=== PATIENT | male | born 1930 | race Caucasian/White ===

== ENCOUNTER 2018-01-26 22:45 | Emergency (ER) | payer OTHER, BC ==
[~2018-01-26] VITALS: Ht 167.6 cm; Wt 94.8 kg
[~2018-01-26 22:45] MED LIST: AVODART0.5 MG PO; FLOMAX0.4 MG PO; NOHOMEMEDICATIONS; ZPAK PO
== END 2018-01-27 00:28 | disposition home or self-care (01) ==
LOC: ER 22:45
DX: Z46.6 Encounter for fitting and adjustment of urinary device (principal); N40.0 Benign prostatic hyperplasia without lower urinary tract symptoms

== ENCOUNTER 2019-06-02 14:41 | Inpatient (IN) | payer OTHER, BC ==
[~2019-06-02] VITALS: Ht 170.2 cm; Wt 99.3 kg
[2019-06-02] MEDS ORDERED: SPIRONOLACTONE25 M1 PO (16:53)
[2019-06-02] MEDS ORDERED: TOPROL XL25 MG PO (16:56)
[2019-06-02] MEDS ORDERED: PAXIL10 MG PO (16:56)
--- NOTE | 2019-06-02 17:39 | NUR ---
WHITE MALE ADMITTED AT 1410 THIS AFTERNOON. HE IS ADMITTED WITH DEMENTIA. HIS SAYS HE IS MAKING VAILED THREATS TO HER AND SHE HAS BEEN BECOMING UNCOMFORTABLE. HE IS IRRITABLE, DEMANDING. HIS VITAL SIGNS ON ADMIT WERE B/P 120/68 P 38, TEMP 97.6 AND 100 % OXYGEN ON ROOM AIR. HE WAS COOPERATIVE WITH THE ADMISSION PROCESS. SIGNED THE ADMISSION PAPERS. MEDS PLACED IN COMPUTER AND READ TO DR. GOLDSTEIN AND DR. SHELLEY. DR. SHELLEY TO ENTER THEM INTO THE COPUTER. PT. DENIES HI/SI AND AVH AT THIS TIME. HE IS ALERT AND ORIENTED TIMES 4. HE STATES HE IS A VEGAN. HE IS CLEANLY DRESSED. WHEN HIS WAS PRESENT HE WAS ARGUMENTIVE WITH HER AND VERY DEMANDING.
[2019-06-02 20:16] VITALS: BP 151/70
--- NOTE | 2019-06-03 01:40 | NUR ---
NURSES NOTE - THIS NURSE ASSUMED CARE AT APPROXIMATELY 1900. HE APPEARED WITH A FLAT TENSE AFFECT UPON GREETING PATIENT. PATIENT APPEARS GROSSLY CONFUSED SURROUNDING REASON FOR BEING IN THE HOSPITAL. MULTIPLE REDIRECTIONS WERE ATTEMPTED TO GROUND PATIENT THAT WERE UNSUCCESSFUL. PATIENT WAS NOT COOPERATIVE WITH ASSESSMENT AND INTERVIEW. THIS NURSE GAVE PATIENT TIME ALONE AND RE ENTERED ROOM WITH PATIENTS MEDICATION AND ATTEMPT TO REASSESS PATIENT TO WHICH PATIENT STATED 'GO AWAY, I SAID GO AWAY.' THIS NURSE DID PATIENT ASKED. HE DID NOT APPEAR TO BE IN MEDICAL DISTRESS NOR ANY SUICIDAL GESTURES OR ITEMS IN ROOM WERE APPARENT FOR POSSIBLE ATTEMPT. NURSING WILL MAINTAIN PRECAUTIONS TO ENSURE SAFETY.
--- NOTE | 2019-06-03 06:20 | NUR ---
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
--- NOTE | 2019-06-03 12:23 | NUR ---
PSYCHOSOCIAL ASSESSMENT Diagnosis: UNSPECIFIED PSYCHOSIS Admit Date: 06/02/19 Psychiatrist: DAPHNEY Symptoms associated with current admission: Anxiety/panic Violence/aggression Activity level change Presenting problems: Pt has being feeling down, and did not want to participate in regular activities. pt is fearful, anxious. Pt was having homicidal ideation. Pt mention that he would hurt hius but does not want too. Precipitating Factors: Non-compliance psychothx No clear precipitant Medical condition Comments: Pt has being diagnosed with Parkinson. History of High Risk Behavors: Other Suicide Risk Factors: D A-Signs of alcohol/substance abuse w/ suicide ideation B-Recent suicidal thoughts or attempts C-Recent thoughts or attempts of harming someone else D-Altered mental status due to psychiatric/chem dep etiology E-The behavior exists - add comment PSYCHIATRIC HISTORY Age of onset: 89 Prior hospitalizations: 1-2 times hospitalized Hospital names and dates, if available: [facility] 2018 Most Recent Outpatient HX: Denies prior OP services Additional information: Legal Status: DPOA Guardian/Conservatorship type: DPOAs Contact name: Carol Ann Quijano Contact phone: [phone] Other: Name: Phone: Other legal issues: (Arrests/convictions Current Status) None P.O. Name and Phone #: FAMILY HISTORY Place of : [facility] Raised in: [facility] # Siblings & order: Pt has to two sibilings, eldest Describe relationships within family of origin: Pt is very close with his sibilings. Any psychiatric or substance abuse problems within family of origin: N Has patient been sexually or physically abused, neglected or been taken advantage of financially? N Has the abuse been reported? N Other pertinent family information: Marital history/significant relationships: Domestic violence: N Children ages & who is caring for them: Pt has two adult children Is child welfare involved? N Drug history: None Alcohol Use: Frequency: Quantity: Have you ever felt you ought to Cut down on drinking? Have people Annoyed you by criticizing your drinking? Have you ever felt bad or Guilty about your drinking? Have you ever had a drink first thing in the morning to steady your nerves/get rid of a hangover(Eye ec teacher) CAGE TOTAL 0 If CAGE score is 3 or more, notify provider for withdrawal orders! AXIS SCREENING TOOL Preble I Mood Disorders: Depression Preble II Personality/Mental Retardation: Preble III Medical Impairment: Alzheimer's HTN UTI Preble IV Problem(s) with: Health care services Other psych/environ prob Preble V: 40-Major impairment Additional Preble comments: PERSONAL BACKGROUND Relevant cultural issues (ethnicity, values, beliefs, spiritual): Spiritual Spiritism: Prostestant Importance of scientology to patient: High What hobbies/interests does the patient have? Read Computers Music (Classical) Sexual orientation (relevant impact to current treatment): Heterosexual : Where did you serve: Branch of service: [employer] Rank: Unknown Discharge status: Honorable Are you a combat ? N Occupational/Work: Do you work? N Do you want to work? How many hours do you work/week? 0 How many jobs have you had in the past 5 years? 0 Do you need assistance finding a job? N Does the patient need assistance in job training? N Source of income: SSI Other Does patient have a Payee? Y Payee name: Carol Ann Quijano Approximate monthly income: 1500 Does patient have adequate funds for next 30 days? Y Education background: Post-graduate school Highest grade completed: 12th grade Other Educational/training programs: Functional deficits: Explain functional deficits: Current living situation: House/apartment Address/phone where pt. is living: Pt lives at home with his Does the patient plan to continue there after DC? Yes Patient lives with: Spouse Will family/significant other be involved in treatment? Other community support services utilized: Pt will probably need a memory care setting Support System Available (family/friend) Name: Carol Ann Quijano Relationship: Name: Phone: Relationship: Name: Phone: Relationship: Patient strengths: Family support Motivated Insight Community support Patient's assets: Good self care Positive support system Positive marriage Patient's weaknesses: Chronic hx mental illness Health problems Additional weaknesses: Pt will need assistance with care. Patient's perception of current forensic social worker/case management needs: Pt stated that CM is someone who assist with care PRELIMINARY DISCHARGE PLAN Discharge plan/Community resource contacts: Pt will need a memory care setting Discharge needs: Pt will need assistance with care. Problems anticipated on discharge: Compliance w/ med regimen Comments: (factors affecting DC plan/pt. response/interventions) SW will setup a family meeting with .
[2019-06-03 13:46] VITALS: BP 151/70
--- NOTE | 2019-06-03 15:41 | NUR ---
ASSUMED CARE OF PT AT 0700. PT WAS CALM AND NOT AGITATED THUS FAR TODAY. PT STATED " MY CAME TO SEE ME TODAY" I ASKED IF HE HAD A GOOD VISIT HE STATED YES. PT HAS A FLAT AFFECT. TOOK ALL MORNING MEDS, SHIFT ASSESSMENT COMPLETE. WILL CONT POC.
--- NOTE | 2019-06-03 16:57 | NUR ---
HUNG schedule a family with the family on June 10, 2019. SW spoke with pt son and informed him that pt would like for him to attend the meeting. SW provided the pt information of the meeting. SW will follow-up with pt.
--- NOTE | 2019-06-04 03:09 | NUR ---
NURSES NOTE - ALEXANDER IS ALERT AND ORIENTED X3. DURING INITIAL GREETING PATIENT APPEARED WITH A CONSTRICTED TENSE AFFECT. WHO REPEATEDLY SAID 'NO' WHEN THIS RN HAS NOT ASKED A QUESTION. THIS NURSE ASKED TO PERFORM QUICK HEAD TO TOE AND PATIENT STATED 'NO, DONT TOUCH ME, I DONT LIKE YOUR HANDS. I DONT WANT MEDICINE OR ANYTHING FROM YOU.' PATIENT REFUSED ASSESSMENT, NO S/S OF DISTRESS, ABLE TO MAKE COMPLETE SENTENCES. PATIENT WENT TO HIS ROOM IN BED WITH EYES CLOSED ON AND OFF FOR ENTIRETY OF SHIFT. WILL CONTINUE TO MONITOR.
--- NOTE | 2019-06-04 06:07 | NUR ---
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
--- NOTE | 2019-06-04 09:18 | H ---
[facility] [place] [address] HISTORY AND PHYSICAL Name: ALEXANDER LUCAS Room #: 524A-A ADM IN M.R.#: [id number] Admission: 06/02/19 ������������������ Attend Phys: Manuel Arnett DO Discharge: ������������������ Date of : 32 Report #: [id number] THIS REPORT FOR: //name// CC: Manuel Arnett [facility] DATE OF SERVICE: 06/02/2019 ATTENDING PHYSICIAN: Manuel Arnett DO. CAREER DEVELOPMENT FACILITATOR: Angel Quiroz MD REASON FOR ADMISSION: Homicidal ideation, concern for dementia. SOURCES OF INFORMATION: Interview with the patient, medical records from [facility], interview with his , name Carol Ann, also goes by Lin. HPI: This is an 89-year-old male who presented to the Emergency Room from [facility], noted to have persistent thoughts of killing his , stated he tries not to have these thoughts and then he had them, he has been experiencing them for the last 1-2 months. Denies depression, denied suicidal intent. He has had thoughts of suicide, but states clearly "I would never harm myself." The patient reports no psychiatric history. Denies anxiety is an issue for him, though he does feel anxious at times. The patient reports he does not know exactly how homicidal thoughts started, feels upset that it is happening. The patient is agreeable to psychiatric admission. He stated that the last time he was here, he was hoping for, but that did not happen. According to his , she has never felt threatened, but in the last week, felt more unease. Additional information from the , the patient made a statement that if he did not in the back seat, he felt he would try and take control of the steering wheel and have an accident. Additionally, on interview this morning, the patient states that he has had thoughts that had been bothering him, thoughts about political figures such as Alyssia. Denies access to weapons. Denies intent to harm people including political figures. The patient is a poor historian. I completed the 15-question geriatric depression scale, the patient scored 0 surprisingly, I believe he understood all the questions. [facility] mental status examination was performed; he scored a 15/30. Deficits were widespread, delayed recall, clock drawing, verbal fluency, visual spatial things were preserved, executive function was impaired, few memory relatively preserved. LABORATORY DATA: H and H 13.2 and 39.6, platelet count 180, white blood cell [address] [address] HISTORY AND PHYSICAL Name: ALEXANDER LUCAS Room #: 524A-A ADM IN .R.#: [id number] Admission: 06/02/19 ������������������ Attend Phys: Manuel Arnett DO Discharge: ������������������ Date of : 32 Report #: [id number] count 4.3. Sodium 135, potassium 4.4, chloride 106, bicarbonate 23, anion gap 6, BUN 24, creatinine 1.41, EGFR non- 48, glucose 111, albumin 3.6, calcium 9.2, total bilirubin 0.9, total protein 6.6, AST 10, ALT 5, alkaline phosphatase 55. UDS is negative. Urine culture is negative on 05/27/2019. Salicylate less than 2.5. Urinalysis showed 3+ leukocyte esterase, negative nitrites, positive urine ascorbic acid, white blood cell counts were packed, bacteria was moderate. Additional information, primary care physician, Dr. Jorge Pickens; script was given for levofloxacin p.o. q.12 hours; he will take for 10 days. 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 HOME MEDICATIONS: Tylenol, vitamin C, aspirin, cholecalciferol, Coenzyme-Q, cyanocobalamin, donepezil, glucosamine, hyoscyamine, Ocuvite, Lutein, metoprolol XL 25 mg extended release daily, polyethylene glycol daily, spironolactone 25 mg daily. He was on Bactrim, but now switched to levofloxacin and multivitamins. FAMILY HISTORY: Heart disease in his father. SOCIAL HISTORY: for 34 years, one biological child. 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 IMAGING: No recent imaging done here. His states MRI and CT was done at the [facility], we will request records. Also additional medical history, he has had a tremor for 3 years, there is a concern of Parkinson's disease, not officially diagnosed. PHYSICAL EXAMINATION: VITAL SIGNS: Today as follows, temperature not done, pulse 76, respirations 18, BP 151/70. MUSCULOSKELETAL: Did have a slowed gait, normal station. MENTAL STATUS EXAMINATION: This is a well-developed, fairly nourished male, appearing stated age. Attention limited. Concentration limited. Speech slowed. Thought process linear and limited. Thought content, relative poverty of thought. Some psychomotor retardation. No psychomotor agitation. Denied overt auditory hallucinations, possibly thought insertion. Denied visual hallucinations, denied tactile, denied olfactory, denied gustatory. Memory [facility] [address] [place] [address] HISTORY AND PHYSICAL Name: ALEXANDER LUCAS Room #: 524A-A ADM IN M.R.#: [id number] Admission: 06/02/19 ������������������ Attend Phys: Manuel Arnett DO Discharge: ������������������ Date of : 32 Report #: [id number] formally tested with [facility] and was grossly impaired. Insight impaired. Judgment impaired. Fund of knowledge well below his premorbid average, which is a master's degree in mathematics. FORMULATION: An 89-year-old male being admitted for homicidal ideation as well as intermittent suicidal ideation as well as cognitive impairment. 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 PLAN: Evaluate, stabilize and obtain collateral. Regarding his current medications, we have tamsulosin 0.4 mg p.o. daily, spironolactone 25 mg p.o. daily, metoprolol XL 25 mg p.o. daily with pulse and blood pressure parameters, dutasteride 0.5 mg p.o. daily, levofloxacin 750 mg daily for I guess 7-10 days, there is no stop date and regular PRNs. We will obtain records from [facility]. We will see if the patient perks up in his cognitive function. If not, we will have to do the SABRINA, possibly neuropsych testing. At this point, it is unclear if the patient can return home or will need placement. Time spent on interview, review of records evaluation, coordination of care of this patient is at least 60 minutes. STRENGTHS: Insured, he is and has family support. WEAKNESSES: Advancing age, neurodegenerative pictures. ��������������������������������������������� <ELECTRONICALLY SIGNED> ���������������������������������������� By: Manuel Arnett DO ��������������������������������������������� 06/04/19 0918 1317 1430 Manuel Arnett, /nt
--- NOTE | 2019-06-04 16:32 | NUR ---
0700: Report rec from noc shift, care assumed. 0800: Ambulatory independently to Dr, feeds self, apptite good, takes meds whole w/o difficulty. Pt secldes self from others, gives short answers to questions. Pleasant and cooperative with staff and other pts.
[2019-06-04 19:24] VITALS: BP 104/68
[2019-06-04 19:28] VITALS: BP 106/56
--- NOTE | 2019-06-04 23:15 | NUR ---
PT IN ROOM TALKING WITH PEER UPON ARRIVAL TO SHIFT. PT CAME TO DAY ROOM FOR HS SNACK, COMPLIANT WITH MEDS. PT HAS EYE CONTACT BUT BLUNTED AFFECT. ON ANTIBIOTIC FOR UTI. GAIT STEADY AMBULATORY.
--- NOTE | 2019-06-05 09:42 | NUR ---
0700: Report rec from noc shift, care assumed. 0900: Ambulatory independently in halls and to DR, gait steady. Sits in DR away from others, affect flat, minimal communication with interaction. Feeds self, appetite good, consumed 100% of meal. Takes meds whole w/o difficulty, denies pain or discomfort @ this time. Cooperative with staff and pleasant with room mate. Declines 0900 therapy group, in bed resting.
[2019-06-05 19:36] VITALS: BP 98/48
--- NOTE | 2019-06-05 21:37 | NUR ---
PT LAYING IN BED READINIG THE BIBLE. WHEN PT WAS ASKEDIF HE WANTED A SNACK HE WAS VERBALLY IRRITABLE AND SAID NO. PT THEN PROCEEDED TO READ A BIBLE PASSAGE ABOUT CURSING AT A YELLING LEVEL. PT WAS COMPLIANT WITH HIS HS MEDS. PT DECLINED HS RORY, PCT STATED PT HAD SHOWER IN THE EARLY AM ON 11/05.
[2019-06-06 07:00] VITALS: BP 102/71
[2019-06-06 12:21] VITALS: BP 98/48
--- NOTE | 2019-06-06 17:13 | NUR ---
Sw spoke with pts' and she confirmed that she is having a family meeting on sunday at 11 am. She is aware that pt might need placement but really wants to try to keep him at home as long as possible
--- NOTE | 2019-06-06 18:03 | NUR ---
ASSUMED CARE AT 0700 THIS MORNING. PT. HAS BEEN ON THE UNIT FOR GROUPS (ALTHOUGH HE SAT ON THE PERIPHERY), TOOK MEDS WITHOUT PROBLEMS. HE ATE HIS MEALS ON THE UNIT. HE HAS NOT STATED ANY HI STATEMENTS TODAY. HAVE NOTED ANY SI OR AVH TODAY. EATING WELL.
[2019-06-06 19:55] VITALS: BP 140/83
--- NOTE | 2019-06-06 22:51 | NUR ---
Care assumed at 1900: Patient alert and oriented to person and place. Confusion noted. Patient resting in bed at start of shift. Patient declined HS snack. Patient blunted affect. Easily irritable. Patient has 2+ pitting edema to bilateral lower extremities. Patient encouraged to elevate lower extremities when laying in bed. Patient attempting to close his door. Patient re-directed to leave door cracked open when in room. Patient irritable when bed alarm sounds. Patient given alternative call light and educated to use. Patient educated on purpose of bed alarm and call light and fall prevention. Patient stated "you're full of bologna!" Patient took his medication without difficulty. Patient denies SI/HI/AH/VH. No s/s of delusional or paranoia behaviors. No s/s of agression this shift.
--- NOTE | 2019-06-07 09:28 | NUR ---
[id number]: Report rec from noc shift, care assumed. Awake, oriented to name, forgetful and confusion noted to situation and place. Ambulatory independently to DR, gait slow/steady. Secludes self in DR, minimal feedback communication from pt, feeds self, appetite good, consumed 100% of a.m. meal, takes meds whole w/o difficulty, denies pain, affect flat. Attending 0900 therapy group, minimal participation noted.
[2019-06-07 17:23] VITALS: BP 101/54
[2019-06-07 20:24] VITALS: BP 101/69
--- NOTE | 2019-06-08 02:16 | NUR ---
Care assumed of patient at 1900: Patient alert and oriented x4 with occasional confusion noted. Patient can be demanding and irritable at times. Patient has been more pleasant and cooperative this shift. Patient sat in the day room with other peers for snack and evening activity. Patient doesn't communicate with others much and is more of a passive participant. Patient denies any SI/HI/AH/VH. No delusional or paranoia behaviors observed. Patient took medication whole without difficulty. Patient is on abx tx for the diagnosis of UTI. Denies any pain or burning upon urination. Currently incontinent of bladder. Patient encouraged to use the bathroom and angie care offered. Patient declines for assist in angie care and states he can do it independently. Patient was able to go to bed without any difficulty and has been resting quietly.
[2019-06-08 05:35] LABS: HEMATOCRIT 37.6 % (42.0-52.0); HEMOGLOBIN 12.7 gm/dL (14.0-18.0); MCH 32.1 pg (26.0-34.0); MCHC 33.9 g/dL (28.0-37.0); MCV 94.8 fL (80.0-100.0); PLATELET COUNT 144 thou/uL (150-400); RBC 3.97 mil/uL (4.50-6.00); RDW 15.5 % (10.5-14.5); WBC 4.8 thou/uL (4.0-11.0)
[2019-06-08 06:03] LABS: ALBUMIN 2.7 g/dL (3.4-5.0); CALCIUM 8.9 mg/dL (8.5-10.1); CREATININE 1.5 mg/dL (0.7-1.3); POTASSIUM 4.1 mmol/L (3.5-5.1); TOTAL BILIRUBIN 0.9 mg/dL (<0.1-1.0); TOTAL PROTEIN 6.3 g/dL (6.4-8.2)
[2019-06-08 06:22] LABS: ABSOLUTE NEUTROPHILS 2.8 thou/uL (1.4-8.2)
[2019-06-08 09:38] VITALS: BP 94/57
--- NOTE | 2019-06-08 15:21 | NUR ---
0700: Report rec from noc shift, care assumed. 0800: Ambulatory independently in thorne and to DR, gait slow/steady. Affect flat, pleasant and cooperative with staff. Feeds self with set up assist, appetite good, consumed 100% of a.m. meal, takes meds whole w/o difficulty. 0900: Attending therapy group with 100% participation.
[2019-06-08 19:52] VITALS: BP 106/64
--- NOTE | 2019-06-09 01:48 | NUR ---
PT AMBULATING TO BATHROOM INDEPENDENTLY AND IS TOLERATING FAIR. DENIES PAIN. RESTING COMFORTABLY. NO NEEDS VOICED. WILL CONTINUE TO PROVIDE FREQUENT OBSERVATION.
[2019-06-09 07:00] VITALS: BP 91/54
[2019-06-09 11:00] VITALS: BP 91/54
--- NOTE | 2019-06-09 11:58 | NUR ---
Date of Admission: 06/02/19 Date of Activity Therapy Assessment: 06/05/19 Activity Goal: Increase engagement/reality orientation Initial Goal: 2 Group activities/day Weekly progress towards goal: On track Group participation level: Moderate Behaviors observed: Patient participates in most groups, though ocassionally denies, i.e. when he prefers to watch television (though not provided during group times) or walk the unit. Patient engages well with other participants and requires minimal reorientation to present situation. Plan: No change towards goal
--- NOTE | 2019-06-09 15:32 | NUR ---
PATIENT UP WALKING IN HALLS FREQUENTLY. SHUFFLING GAIT NOTED. SHAVED HIMSELF THIS AM WITH SOME ASSISTANCE FROM NURSE. EATING ALL OF MEALS IN DINING ROOM. SPEECH IS HARD TO UNDERSTAND AND DISORGANIZED. ALERT AND ORIENTED X 3. TOOK PILLS WITH WATER. IMPULSIVE. DENIED PAIN.
[2019-06-09 19:18] VITALS: BP 124/66
--- NOTE | 2019-06-09 19:51 | NUR ---
ASSUMED CARE OF THE PT AT 191 PM. ALERT ET ORIENTED X 3. MAKES NEEDS KNOWN. HEART RATE REGULAR. LUNGS CLEAR BILATERLLY, RESP., EVNE, AND UNLABORED. +BS HEARD IN ALL 4 QUADRANTS. ABD SOFT ET NONTENDOR. +PP BILATERALLY. DENIES ANXIETY AND DEPRESSION. DENIES SI/HI, A/V HALLUNCIATIONS. REMAINS ON 12 MINUTE CHECKS FOR HIS SAFETY.
--- NOTE | 2019-06-10 12:42 | NUR ---
HUNG and Dr. Arnett met with pt family to discuss his diagnosis, and medication regimine. Dr. Arnett mention pt is exhibiting signs of Lewy Body Dementia, and will need assistance with care that consist 11/06. Pt Carol Ann mention that she would like to bring her home with home health care. Carol Ann mention if the illiness progressed then she would move to implmenting LTC placement in . Dr. Arnett mention pt will be ready for d/c on , June 12, 2019. HUNG will provide referrals for HH. HUNG will follow-up with the family to see what agencies will provide care.
[2019-06-10 13:53] VITALS: BP 121/66
--- NOTE | 2019-06-10 15:24 | NUR ---
PT PARTICIPATED IN AM GROUP, TOLERATING MEALS AND TAKING MEDICATION WITHOUT ISSUE. PATIENT COOPERATIVE AND CALM, AFFECT FLAT. PATIENT TOILETS SELF, DENIES PAIN, WALKS AROUND FREQUENTLY. WILL CONTINUE TO MONITOR FOR SAFETY.
[2019-06-10 19:11] VITALS: BP 138/82
--- NOTE | 2019-06-10 22:49 | NUR ---
Care assumed of patient at 1900: Patient laying in bed at start of shift. Patient calm, pleasant and cooperative. Patient alert and oriented x4. Patient states that he is going home tomorrow which he is excited about. Unknown of accuracy of statement. Patient took medication whole without difficulty. Denies pain or discomfort. Denies SI/HI/AH/VH. No delusional or paranoia statements observed. Patient came to dining room for HS snack and ate 100%. Patient sat in the back of room and isolate self from others. Flat affect observed. Patient is up reading in day room at this time. Reports that he is not tired and would like to read for a bit.
--- NOTE | 2019-06-11 14:26 | NUR ---
TOWARDS POC NO BEHAVIORAL ISSUES AT THIS MOMENT, PT CALM, COOPERATIVE. VSS. WILL CONTINUE TO MONITOR.
[2019-06-11 14:56] VITALS: BP 123/80
--- NOTE | 2019-06-11 17:07 | NUR ---
SW spoke with the pt about d/c home with HH. Pt stated that he would like to go home, and be with his .
[2019-06-11 19:24] VITALS: BP 119/71
--- NOTE | 2019-06-11 21:24 | NUR ---
PATIENT APPEARS TO BECOMING INCREASINGLY AGITATED OR DELUSIONAL RELATED TO ANOTHER PATIENT HE IS REFERRING TO HIS . HE CONTINUES TO PUSH HER WC AND MAINTAINS THAT HE WANTS CONTROL OF HER IT IS HIS . DR. SHELLEY NOTIFIED WITH ORDERS FOR GEODON 10MG X1 NOW.
--- NOTE | 2019-06-12 01:24 | NUR ---
ASSUMED CARE OF PATIENT, AT THE BEGINNING OF THE SHIFT PATIENT WAS PLEASANT WITH NURSING STAFF, TAKING MEDICATION PRESCRIBED AND INTERACTING WITH OTHERS MINIMALLY. HE WAS ABLE TO ANSWER ALL QUESTIONS FROM THIS NURSE, ALERT AND ORIENTED X3. LATE RINTO THE EVENING PT BX DECLINED. SEE PREVIOUS NOTES. CURRENTLY PATIENT IN BED WITH NO S/S OF DISTRESS. RR EVEN AND UNLABORED. WILL CONTINUE TO MONITOR.
[2019-06-12 06:22] LABS: HEMATOCRIT 38.8 % (42.0-52.0); MCH 31.9 pg (26.0-34.0); MCHC 33.4 g/dL (28.0-37.0); MCV 95.4 fL (80.0-100.0); PLATELET COUNT 155 thou/uL (150-400); RBC 4.07 mil/uL (4.50-6.00); RDW 15.3 % (10.5-14.5); WBC 3.7 thou/uL (4.0-11.0)
[2019-06-12 06:31] LABS: CALCIUM 9.2 mg/dL (8.5-10.1); CREATININE 1.4 mg/dL (0.7-1.3); POTASSIUM 4.2 mmol/L (3.5-5.1)
[2019-06-12 07:54] LABS: ABSOLUTE NEUTROPHILS 1.9 thou/uL (1.4-8.2)
[2019-06-12 07:55] LABS: ANISOCYTOSIS 1+
[2019-06-12 08:03] VITALS: BP 131/84
[2019-06-12 16:54] VITALS: BP 118/80
--- NOTE | 2019-06-12 16:56 | NUR ---
Patient Name: ALEXANDER LUCAS Admission Date: 06/02/19 DISCHARGE PLAN: Pt will be d/c home with . Care Assessment: Pt was assessed by Dr. 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 Level II Assessment: None Transportation: Pt will be transported by his . Special Instructions/Notes: Pt will need continuance care with a psychiatrist. DISCHARGE TO FACILITY: Facility: Phone: Fax: Address: Contact Name: Phone: PCP: Psychiatrist: [facility] on June 19, 2019 at 10:00am.
[2019-06-12] MEDS ORDERED: HALOPERIDOL 1 MG1 MG PO (17:11)
[2019-06-12] MEDS ORDERED: COLACE100 MG PO (17:12)
[2019-06-12 17:30] VITALS: BP 118/80
--- NOTE | 2019-06-12 18:58 | NUR ---
DISCHARGE INSTRUCTIONS INCLUDING MEDICATIONS PRESCRIBED AT TIME OF DC-FOLLOW UP APPOINTMENTS AND REFERRALS-PRESCRIPTIONS PROVIDED REVIEWED WITH BROOKS-DC INVENTORY OF BELONGINGS REVIWED AND STATES ALL BELONGINGS ACCOUNTED FOR. DENIES QUESTIONS OR CONCERNS RE DC INSTRUCTIONS. AT TIME OF DC ALEXANDER DENIES COMPLAINTS OF PAIN/DISCOMFORT. DENIES SI/SH/HI. ORIENTED TO NAME AND PLACE-NOT TO DATE. GAIT STEADY WITHOUT ASSISTIVE DEVICES AT TIME OF DC.
--- NOTE | 2019-06-16 07:51 | D ---
[facility] [place] [address] DISCHARGE SUMMARY Name: ALEXANDER LUCAS Room #: 524A-A [facility] [place] IN M.R.#: [id number] Admission: 06/02/19 ������������������ Attend Phys: Manuel Arnett DO Discharge: 06/12/19 ������������������ Date of : 32 Report #: [id number] THIS REPORT FOR: //name// CC: Manuel Arnett [facility] DATE OF SERVICE: 06/12/2019 ATTENDING: Manuel Arnett D.O. TREE TAPPING LABORER AT THE TIME OF DISCHARGE: Brittni King MD. 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 MEDICAL COMORBIDITIES: As follows; protein-calorie malnutrition, on Ensure b.i.d. Acute on chronic renal failure, p.o. fluids encouraged. Hypertension, on beta-paulino. Thrombocytopenia, monitoring CBC. UTI, Levaquin course completed. BPH, continuing home meds. DISCHARGE PLAN: He will be discharged to home with his . The patient will need 24-hour supervision and assistance at home. The patient will need to continue care with psychiatrist. He has an appointment at [facility] on 06/19/2019 at 10:00 a.m. for psychiatric and general medical followup to be obtained at that clinic. ACTIVITY: The patient's activity level as tolerated. The patient is to begin. LABORATORY DATA ON THIS ADMISSION: CBC most recently done on 06/12/2019, H and H 13.0 and 38.8, white count 3.7, platelet count 155. Chemistries from 06/12/2019, sodium 140, potassium 4.2, chloride 104, bicarbonate 29, BUN 27, creatinine 1.4, estimated GFR 48, glucose 106, calcium 9.2, magnesium 2.0. IMAGING: On this admission was none. REASON FOR ADMISSION: As follows, reported homicidal ideation and concern for dementia. He was sent from [facility] due to persistent thoughts of killing his . HOSPITAL COURSE: The patient was admitted to Geriatric Psychiatry Unit. Summary of events and interventions occurring during hospitalization, the patient did not exhibit any homicidal ideation or homicidal or suicidal gestures towards his or during number of family visitations. The patient did meet criteria for major neurocognitive disorder. I believe his SLUMS score was around 16 or so out of 30. We had a few nights of temporary aggressiveness likely due to sundowning, which was treated with Geodon IM. However, mostly oral haloperidol [facility] [address] [place] [address] DISCHARGE SUMMARY Name: ALEXANDER LUCAS Room #: 524A-A [facility] [place] [facility]#: [id number] Admission: 06/02/19 ������������������ Attend Phys: Manuel Arnett, Discharge: 06/12/19 ������������������ Date of : 32 Report #: [id number] at a dose of 4 mg at 1400 and 2000 was useful in mitigating these thought disturbances and behaviors. PHYSICAL EXAMINATION: VITAL SIGNS: On day of discharge, temperature 36.6, pulse 59, respirations 18, BP 118/80. MUSCULOSKELETAL: Normal gait and station. This is a well-developed, disheveled, obese male, BMI of 34.3. Attention limited. Concentration limited. Speech is normal in rate, volume and tone. Thought process is linear and goal oriented. Thought content focused on discharge. No psychomotor agitation. No psychomotor retardation. Mood and affect congruent and constricted. Denied SI or HI. Some helplessness. Denied hopelessness. Denied homicidal intent or plan. Memory noted to be impaired. Insight fair. Judgment fair to limited. Fund of knowledge still likely above average. Prognosis is guarded. DISCHARGE MEDICATIONS: Include Haldol 4 mg p.o. at 1400 and 2000, 30-day script was given, docusate 100 mg p.o. b.i.d. for bowel motility. CONTINUE HOME MEDICATIONS: Tamsulosin 0.4 mg p.o. daily for BPH, dutasteride 0.5 mg p.o. daily for BPH, metoprolol succinate 125 mg p.o. daily, Toprol-XL for hypertension. Paroxetine and spironolactone were stopped in this admission. ��������������������������������������������� <ELECTRONICALLY SIGNED> ���������������������������������������� By: Manuel Arnett DO ��������������������������������������������� 06/16/19 075 20 56 Manuel Arnett DO /nt
== END 2019-06-12 18:45 | disposition home or self-care (01) | DRG 57 ==
LOC: SBH 14:41
PROVIDERS: Internal Medicine Geriatric Medicine; Nurse Practitioner; ADMIT Psychiatry & Neurology Psychiatry
DX: G30.9 Alzheimer's disease, unspecified (principal); N39.0 Urinary tract infection, site not specified; E46 Unspecified protein-calorie malnutrition; F01.51 Vascular dementia, unspecified severity, with behavioral disturbance; F02.81 Dementia in other diseases classified elsewhere, unspecified severity, with behavioral disturbance; F32.9 Major depressive disorder, single episode, unspecified; N40.0 Benign prostatic hyperplasia without lower urinary tract symptoms; I12.9 Hypertensive chronic kidney disease with stage 1 through stage 4 chronic kidney disease, or unspecified chronic kidney disease; D69.6 Thrombocytopenia, unspecified; N18.3 Chronic kidney disease, stage 3 (moderate); Z82.49 Family history of ischemic heart disease and other diseases of the circulatory system; Z79.899 Other long term (current) drug therapy; Z68.34 Body mass index [BMI] 34.0-34.9, adult
CPT/HCPCS: 10880

== ENCOUNTER 2019-06-18 21:14 | Inpatient (IN) | payer OTHER, BC ==
[~2019-06-18] VITALS: Ht 170.2 cm; Wt 106.1 kg
[~2019-06-18 21:14] MED LIST changes: +COLACE100 MG PO; +HALOPERIDOL 1 MG1 MG PO; +PAXIL10 MG PO; +SPIRONOLACTONE25 M1 PO; +TOPROL XL25 MG PO
[2019-06-18 21:21] VITALS: BP 149/71
[2019-06-18 21:57] LABS: HEMATOCRIT 39.3 % (42.0-52.0); HEMOGLOBIN 13.1 gm/dL (14.0-18.0); MCH 32.8 pg (26.0-34.0); MCHC 33.2 g/dL (28.0-37.0); MCV 98.6 fL (80.0-100.0); PLATELET COUNT 161 thou/uL (150-400); RBC 3.98 mil/uL (4.50-6.00); RDW 15.3 % (10.5-14.5); WBC 4.3 thou/uL (4.0-11.0)
[2019-06-18 22:09] LABS: ANION GAP 7 mmol/L (7-16); BUN 26 mg/dL (7-18); CALCIUM 9.4 mg/dL (8.5-10.1); CHLORIDE 104 mmol/L (98-107); CO2 28 mmol/L (21-32); CREATININE 1.2 mg/dL (0.7-1.3); GLUCOSE 105 mg/dL (74-106); POTASSIUM 4.5 mmol/L (3.5-5.1); SODIUM 139 mmol/L (136-145)
[2019-06-18 22:12] LABS: SALICYLATE < 2.8 mg/dL (2.8-20.0)
[2019-06-18 22:19] LABS: SGOT 13 U/L (15-37); SGPT 16 U/L (30-65); TOTAL BILIRUBIN 0.6 mg/dL (<0.1-1.0); TOTAL PROTEIN 6.9 g/dL (6.4-8.2); TROPONIN-I <0.06 ng/mL (<0.06)
[2019-06-18 22:53] LABS: ABSOLUTE NEUTROPHILS 2.7 thou/uL (1.4-8.2)
[2019-06-18 22:55] LABS: PLATELET ESTIMATE NORMAL
--- NOTE | 2019-06-19 00:49 | NUR ---
REPORT TO INPATIENT NURSE, YADI
[2019-06-19 00:50] VITALS: BP 124/68
[2019-06-19 01:48] VITALS: BP 139/71
--- NOTE | 2019-06-19 02:16 | NUR ---
ADMIT: ADMITTED FROM ED FROM HOME. KC WAS ASKED BY THE POLICE TO BRING PT IN. PT HAD BEEN IMPULSIVELY CALLING THE POLICE AT NIGHT TO HIS HOME. TODAY THE PT STATED HIS WAS TRYING TO POSION HIM WITH SAMMARINESE FOOD. PT HAS BEEN NON COMPLIANT WITH MEDS. PT HAD BEEN A PT ON [facility] 2 WEEKS AGO. DEMENTIA WITH AGIATION, PROSTATE SURGERY 3 YRS AGO, HERNIA, HTN, LARGE BRUISE ON BACK FROM FALL AT HOME. GAIT AT THIS TIME UNSTEADY AND SLOUCHED TORI RODRÍGUEZ IN ED. PREVIOUS GAIT STEADY INDEPENDENT, CONTINENT B&B. WAS IN ED BUT DID NOT ACCOMPANY PT ON UNIT. PT HAS GLASSES. HOSPITALIST NOTIFIED. DR GATE CLERK NOTIFIED AND NEW ORDERS OBTAINED. PT ARRIVED TO UNIT AND REQUESTED TO GO TO BED. ALARM ON.
[2019-06-19 06:49] LABS: URINE BILIRUBIN NEGATIVE (Negative); URINE BLOOD TRACE (Negative); URINE CLARITY CLEAR; URINE COLOR YELLOW; URINE GLUCOSE-RANDOM* NEGATIVE (Negative); URINE KETONES NEGATIVE (Negative); URINE PROTEIN (DIPSTICK) NEGATIVE (Negative); URINE UROBILINOGEN 0.2 E.U./dl (0.2-1.0)
[2019-06-19 06:56] LABS: AMP/METHAMP Negative (Negative); BARBITURATES Negative (Negative); BENZODIAZEPINES Negative (Negative); COCAINE Negative (Negative); METHADONE Negative (Negative); OPIATES Negative (Negative); PCP Negative (Negative)
[2019-06-19 07:02] LABS: URINE LEUKOCYTES-REFLEX 3+ (Negative); URINE NITRITE-REFLEX POSITIVE (Negative)
[2019-06-19 07:19] LABS: CASTS None Seen /LPF (None Seen); SQUAMOUS 0-3 Few /LPF (0-3)
[2019-06-19 07:21] LABS: BACTERIA-REFLEX 1-9 Few /HPF (None Seen); CRYSTALS None Seen /LPF (None Seen); URINE RBC 0-2 Rare /HPF (0-2); WBC CLUMPS Few (None Seen)
[2019-06-19 07:23] VITALS: BP 121/71
[2019-06-19 08:00] VITALS: BP 121/71
--- NOTE | 2019-06-19 08:21 | EKG ---
[place] [address] [facility] [place] [address] ELECTROCARDIOGRAM REPORT Name: ALEXANDER LUCAS Ondina Room #: 528B-B ADM IN M.R.#: [id number] Admission: 06/19/19 Attend Phys: Maneul Arnett DO Discharge: Date of : 32 Report #: [id number] THIS REPORT FOR: //name// [facility] ED Test Date: 2019-06-18 Test Time: 22:32:49 Pat Name: ALEXANDER LUCAS Department: Room: 528B Gender: M Trimmer Operator: VAIBHAV : [id number] Requested By: Adria Rosas Order Number: [id number] MD: Garfield Gutierrez Measurements Intervals [place] Rate: 54 P: 46 NE: 62 QRS: -32 QRSD: 95 T: -1 QT: 450 QTc: 427 Interpretive Statements Sinus rhythm Short NE interval Left axis deviation Abnormal R-wave progression, early transition Borderline T abnormalities, inferior leads Compared to ECG 12/24/2003 21:46:09 early R-wave progression is now present Electronically Signed On 06-19-2019 8:21:07 CDT by Garfield Gutierrez [email or web address] <ELECTRONICALLY SIGNED> By: Garfield Gutierrez MD, [facility] 06/19/19 0821 31 31 Garfield Gutierrez MD, [facility] /EPI
--- NOTE | 2019-06-19 10:00 | NUR ---
PT UP FROM SLEEPING THIS AM. PT TOOK MEDS WITHOUT ANY ISSUES. HELD METOPROLOL DUE TO BP. PT NEEDS ENCOURAGED TO USE WALKER. PT GAIT IS SHUFFLED. PT COOROPERATIVE WITH CARE AT THIS TIME. 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
--- NOTE | 2019-06-19 11:13 | NUR ---
HUNG spoke with pt Carol Ann concerning a family meeting. SW schedule family meeting on June 25, 2019 at 11:00am. SW mention that pt will need a NF placement. SW will follow-up with pt family.
--- NOTE | 2019-06-19 11:15 | NUR ---
HUNG sent a referral to [facility] to enroll into [place] Medicaid.
--- NOTE | 2019-06-19 12:32 | NUR ---
PT ON HIS WAY TO HIS ROOM FOR GETTING A ONE TIME SHOT OF ROCEPHIN. PT NOT WALKING TO HIS ROOM AND STATED HIS ROOM WAS DOWN THE SRINIVASAN. HAD TO REDIRECT PT TO HIS ROOM. PT RECIEVED SHOT TO RT HIP. PT THEN WENT TO GROUP. PT VERY SLOW TO AMBULATE AND NEEDED HELP WITH STANDING.
--- NOTE | 2019-06-19 14:42 | NUR ---
PT SITTING IN DINING ROOM SLEEPING IN CHAIR. PT UNABLE TO WAKE UP FOR HALDOL.
[2019-06-19 20:27] VITALS: BP 190/87
[2019-06-20 02:38] VITALS: BP 190/87
--- NOTE | 2019-06-20 02:56 | NUR ---
PT RESTLESS, AND SHUFFLING AROUND THE UNIT. INCONTINENT OF URINE, AND NEEDED TO CHG BED CLOTHING. COOPERATIVE WITH ASSESSMENT AND TOOK HS MEDS W/O PROBLEM. SLEPT WELL THROUGH THE NIGHT.
[2019-06-20 08:00] VITALS: BP 121/74
--- NOTE | 2019-06-20 16:05 | NUR ---
ASSUMED CARE AT 0700 THIS MORNING. HE HAS BEEN ON THE UNIT MUCH OF THE MORNING. HE SAT QUIETLY BY HIMSELF. HE WOULD INTERACT WITH STAFF WHEN THEY APPROACHED HIM, BUT HE MADE NO SPONTANIOUS CONVERSATIONS OF HIS OWN. HE WAS COOPERATIVE WITH TAKING HIS MEDICATIONS, ATTENDING GROUPS AND EATING IN THE DINING ROOM. HE DENIES SI/HI AND AVH THIS SHIFT. HE HAS BEEN RESTING IN HIS BED THIS AFTERNOON.
[2019-06-20 19:41] VITALS: BP 109/56
--- NOTE | 2019-06-20 20:14 | NUR ---
RECEIVED REPORT FROM OFFGOING DAY NURSE, ASSUMED CARE @ 19:15. HRRR, LUNGS CTA ALL WILSON, ABD NORMOACTIVE. IN BED, EYES CLOSED RESPIRATIONS EVEN AND UNLABORED, OPENS EYES AND RESPONDS APPROPRIATELY A&OX 3-4. BED IN LOW POSITION, ALARM SET. WILL CONTINUE TO MONITOR Q 12 MINUTES FOR PATIENT SAFETY.
--- NOTE | 2019-06-20 22:08 | H ---
[facility] [place] [address] HISTORY AND PHYSICAL Name: ALEXANDER LUCAS Room #: 528B-B ADM IN M.R.#: [id number] Admission: 06/19/19 Attend Phys: Manuel Arnett DO Discharge: Date of : 32 Report #: [id number] THIS REPORT FOR: //name// CC: Manuel Arnett [facility] DATE OF SERVICE: 06/19/2019 PSYCHIATRIC EVALUATION IDENTIFYING INFORMATION: This is an 89-year-old male, , was admitted on a voluntary basis. SOURCES OF INFORMATION: Interview of the patient, review of the chart and the medical records of the last hospitalization, discussion of the case with the treatment team. CHIEF COMPLAINT AND HISTORY OF PRESENT ILLNESS: This is an 89-year-old male who was recently hospitalized at [facility] on the Geriatric floor and was discharged on Haldol 4 mg twice a day. Since his discharge, review of the records indicate nonadherence with medication. He presented to the Emergency Department as a self-referral through ambulance. He has been worried and paranoid about his trying to poison him. He reported this is a new thing. According to reports, he has been becoming more confused at night and has been calling police multiple times. As mentioned before, hallucinations and paranoia is a new development. The patient himself is a poor historian. He does report anxiety, though he denies depression. Reality testing is impaired. In the past, he has had homicidal thoughts, which are not present at this hospitalization. LABORATORY FINDINGS: Sodium 139, potassium 4.5, chloride 104, bicarbonate 28, BUN 26, creatinine 1.2. Blood glucose 105, AST 13, ALT 16, alkaline phosphatase 67. WBC count 4.3, hemoglobin 3.98, hematocrit 39, and platelet count 161. VITAL SIGNS: Blood pressure 124/68, pulse 51, respirations 18 per minute, temperature 36.8. PAST MEDICAL HISTORY: The patient has significant history of hypertension, benign prostatic hypertrophy, chronic renal failure stage 3, bladder outlet obstruction, hydronephrosis, umbilical hernia without obstruction, scoliosis, history of paroxysmal atrial tachycardia, monoclonal gammopathy of unknown significance, anemia. PAST SURGICAL HISTORY: Prostate operation about 3 years ago. HOME MEDICATIONS: Famotidine 20 mg at bedtime, cephalexin 1000 mg twice a day, [address] [address] HISTORY AND PHYSICAL Name: ALEXANDER LUCAS Ondina Room #: 528B-B ADM IN .R.#: [id number] Admission: 06/19/19 Attend Phys: Manuel Arnett DO Discharge: Date of : 32 Report #: [id number] polyethylene glycol as needed, Zofran as needed, lidocaine, tamsulosin 0.4 mg daily, metoprolol 25 mg daily, dutasteride 0.5 mg every day, Colace 100 mg twice a day, Haldol 4 mg twice a day, acetaminophen as needed. FAMILY HISTORY: Father has cardiac issues. SOCIAL HISTORY: This is an 89-year-old male who has been for 34 years. The patient has one biological child. MENTAL STATUS EXAMINATION: This is an 89-year-old male who appears to be of his stated age. He is comfortably lying in his bed, does not appear to be in any acute distress or pain. Appears to be of his age. Appears nourished. Attention is limited. Concentration is poor. Speech is slow, linear, but limited. There is latency in his responses with low tone voice. Thought content shows paranoia. He does not exhibit psychomotor agitation. He denies auditory hallucinations, though he does not appear to be responding to internal stimuli. Denies visual hallucination. Denies olfactory or gustatory hallucination. Memory tested with slumps is grossly impaired. Insight and judgment is poor. Fund of knowledge is limited. FORMULATION: An 89-year-old male with history of major neurocognitive disorder, presented with paranoia and ideas of persecution with what appears to be sundowning phenomena. DIAGNOSIS: Major neurocognitive disorder with psychosis. ASSETS: Verbal, supportive family. LIABILITIES: Medical health issues, chronicity of illness. RECOMMENDATIONS: 1. We will monitor sleep, appetite, mood, behavior and psychosis. 2. Provide structure, support and reality orientation. 3. Stabilize, get collateral information. 4. Continue home medication. 5. Internal Medicine to address urinary tract infection and elevated BUN at 26. Time spent to interview, review of records, coordination of care at least 60 minutes. <ELECTRONICALLY SIGNED> By: Jose Lackey MD 06/20/19 [id number] Jose Lackey MD /nt
[2019-06-20 22:42] VITALS: BP 109/56
--- NOTE | 2019-06-21 05:03 | NUR ---
SLEPT WELL, AWOKE ONCE IN THE NOC TO TOILET. HAD A BM WELL VOIDING URINE. WILL CONTINUE TO MONITOR Q 12 MINUTE ROUNDING. BED IN LOW POSITION, BED ALARM SET.
[2019-06-21 06:10] VITALS: BP 109/56
--- NOTE | 2019-06-21 11:24 | NUR ---
ASSUMED PATIENT CARE AT 0700. PATIENT UP IN DR AT THAT TIME, SITTING AT TABLE. FLAT AFFECT, CALM MOOD. NO BEHAVIORS AT THIS TIME. COMPLIANT WITH MEDICATIONS. CONTINUE TO MONITOR.
--- NOTE | 2019-06-21 11:42 | NUR ---
PATIENT HAS VISITOR, ARRIVED AT 11:00 A.M. PATIENT SITTING WITH VISITOR AT THIS TIME IN DINING ROOM, AT TABLE.
[2019-06-21 19:23] VITALS: BP 135/87
--- NOTE | 2019-06-21 20:18 | NUR ---
RECEIVED REPORT FROM OFFGOING DAY NURSE, ASSUMED CARE 06/21/19 @ 1900. IN DAYROOM, COOPERATED WITH ASSESSMENT HRRR, LUNGS CTA BUT DIMINISHED, ABD NORMOACTIVE X 4 Q. REQUESTED TO MAKE A PHONE CALL TO , DIALED PHONE HIMSELF AND SPOKE ON THE PHONE FOR 5 MINUTES. WILL CONTINUE TO MONITOR Q 12 FOR PATIENT SAFETY.
--- NOTE | 2019-06-22 00:21 | NUR ---
TOOK HS MEDS WHOLE WITH WATER. EDEMA NOTED TO BILAT LOWER EXTREMITIES. IN BED, BUT FREQUENTLY AWAKE WHEN ROUNDING. DENIES PAIN OR NEEDS. BED IN LOW POSITION, BED ALARM SET, WILL CONTINUE TO MONITOR Q 12 FOR PATIENT SAFETY.
[2019-06-22 00:27] VITALS: BP 135/87
--- NOTE | 2019-06-22 06:44 | NUR ---
6.4 HOURS OF SLEEP.
[2019-06-22 08:43] VITALS: BP 144/69
--- NOTE | 2019-06-22 11:11 | NUR ---
ASSUMED PATIENT CARE AT 0700. PATIENT UP IN DR AT THAT TIME. BELIEVES THAT HE IS BEING DISCHARGED TODAY. NURSE REDIRECTED HIM AT THAT TIME THAT HE WAS NOT. PATIENT STATED DURING ACTIVITY GROUP THAT HE WAS DISCHARGED. LATER, ABOUT 1000 A.M., PATIENT WAS AT EXIT DOOR, STATING THAT HE NEEDED TO LEAVE BECAUSE HE WAS DISCHARGED. NURSE REDIRECTED ONCE AGAIN, TOOK PATIENT AWAY FROM DOOR, BACK TO D.R. CONTINUE TO MONITOR.
--- NOTE | 2019-06-22 11:57 | NUR ---
HUNG spoke with Pt daughter, Emily. Emily stated that her family had a meeting and are in agreement with the treatment plan. emily stated she would not be able to make it to the meeting on but want to let HUNG know all are in agreement. Emily stated her mother will be looking at nursing facilities this upcoming week.
[2019-06-22 20:19] VITALS: BP 146/74
--- NOTE | 2019-06-22 21:59 | NUR ---
ASSUMED CARE OF THE PT AT 191 PM. ALERT ET ORIENTED X 2, FORGETFUL AT TIMES. HEART RATE REGULAR, LUNGS CLEAR BILATERALLY, RESP., EVEN AND UNLABORED. +BS HEARD IN ALL 4 QUADRANTS. ABD SOFT ET NONTENDOR. HE CAN WALK AROUND THE UNIT, WITH A SLOW STEADY GAIT. DENIES ANXIETY, DEPRESSION, A/V HALLUNICATIONS, SI, HI. DENIES RACING THOUGHTS AND NIGHTMARES. HAS AN UNKEMPT APPEARANCE. MAKES NEEDS KNOWN. REMAINS ON 12 MINUTE CHECKS FOR HIS SAFETY.
[2019-06-23 07:34] VITALS: BP 114/79
--- NOTE | 2019-06-23 09:45 | NUR ---
0725: Report rec from [facility] shift, care assumed. [id number]: Ambulatory assisted with walker, gait steady/slow, oriented to name and place occasionally. To DR ramey, feeds self, takes meds whole w/o difficulty. Cooperative with staff, mood is flat/quiet.Denies concerns or pain at this time.
[2019-06-23 19:08] VITALS: BP 121/77
--- NOTE | 2019-06-24 00:41 | NUR ---
ASSUMED CARE OF THE PT AT 191 PM. ALERT ET ORIENTED X 2. MAKES NEEDS KNOWN. WALKS WITH A STEADY GAIT. HEART RATE REGULAR. LUNGS CLEAR BILATERALLY, RESP., EVEN, AND UNLABORED. +BS HEARD IN ALL 4 QUADRANTS. DENIES ANXIETY, DEPRESSION, A/V HALLUNICATONS. REMAINS ON 12 MINUTE CHECKS FOR HIS SAFETY.
--- NOTE | 2019-06-24 06:12 | NUR ---
THE PT SLEPT 6.8 HOURS OF SLEEP LAST NIGHT.
--- NOTE | 2019-06-24 10:10 | NUR ---
0715: Report rec from [facility] shift, care assumed. [id number]: Ambulatory independently with walker to BR, in halls and to DR, gait steady. Alert, oriented to name and occasionally place, feeds self, appetite good, takes meds whole w/o difficulty. Denies pain or discomfort at this time. Attended 0900 therapy group, 25% participation noted, sleep while sitting at table in common area.
[2019-06-24 10:59] VITALS: BP 118/70
[2019-06-24 19:41] VITALS: BP 143/75
[2019-06-24 22:48] VITALS: BP 143/75
--- NOTE | 2019-06-25 00:10 | NUR ---
PATIENT UP AND AMBULATING BEFORE BED. HE DID COME OUT TO NURSES STATION TO STATE THAT HE HAD SOME RADIOACTIVE DEVICE THAT HE WANTED US TO HOLD IN AN ENVELOPE FOR HIM. IT WAS A TORN UP PAPER TOWEL AND I PUT IT IN AN ENVELOPE AND SHOWED HIM IT WAS BEING KEPT SAFE. HE CALMED DOWN AND MOVED ON DOWN THE SRINIVASAN WITH HIS WALKER. PATIENT HAS BEEN PLEASANT TOOK HIS HS MEDS WITHOUT A PROBLEM AND IS SLEEPING SOUNDLY. HE DOES GET CONFUSED WHERE HIS ROOM IS AND DID COME TO LET ME KNOW A WOMAN WAS IN HIS BED. HE WAS IN THE WRONG ROOM. REDIRECTED HIM EASILY BACK TO HIS. DENIES PAIN. RESTING COMFORTABLY.
--- NOTE | 2019-06-25 05:27 | NUR ---
PATIENT GOT UP TO GO TO BATHROOM AROUND 0300 WHEN RAILWAY TRACK PLANT OPERATOR AND MYSELF WAS IN THE ROOM TO DO ROOM CHECKS. PATIENT'S YELLOW NONSLIP SOCKS WERE ON AND WALKER USED. NO BM. AT 0400 PATIENT TOOK A SHOWER. THIS NURSE HELPED HIM OUT AND DRIED HIM. PATIENT BACK TO BED AND STILL SLEEPING.
[2019-06-25 07:30] VITALS: BP 117/80
--- NOTE | 2019-06-25 16:52 | NUR ---
HUNG met with pt Carol Ann concerning AL, and RCF. SW mention that will need a memory care unit. SW recommended [facility], and provided contact information for the NF. SW mention that she will send a referral on tomorrow, June 26, 2019.
[2019-06-25 19:46] VITALS: BP 112/60
--- NOTE | 2019-06-26 02:35 | NUR ---
ASSUMED CARE OF PT AT 1900HRS. PT IS ALERT AND AMBULATED THE HALLWAY. PT USES HIS WALKER AND WEARS YELLOW SOCKS. PT IS PLESANTLY CONFUSED AND WAS ASKING STAFF ABOUT THEIR "TRANSFORMERS". PT ALSO BELIEVES THAT THE ROOM NUMBERS HAVE BEEN SWITCHED AROUND. PT WAS CALM AND EASY TO REORIENT. VSS AND NO S/S OF ACUTE DISTRESS. WILL CONTINUE TO MONITOR.
[2019-06-26 08:52] VITALS: BP 100/60
--- NOTE | 2019-06-26 12:01 | NUR ---
Date of Admission: 06/19/19 Date of Activity Therapy Assessment: 06/22/19 Activity Goal: Increase reality orientation and socialization Initial Goal: 1 Group activity/day Weekly progress towards goal: On track Group participation level: Moderate Behaviors observed: Patient appears drowsy and is unable to stay awake during most groups, though he participates moderately when awake. Patient requires direct engagement to contribute to groups and interacts little socially. Plan: No change towards goal
[2019-06-26 20:10] VITALS: BP 153/91
--- NOTE | 2019-06-26 22:50 | NUR ---
ASSUMED CARE OF THE PT AT 1915PM. ALERT ET ORIENTED X 2. MAKES NEEDS KNOWN. WALKS WITH A SLIGHTLY UNSTEADY GAIT. HEART RATE REGULAR. LUNGS CLEAR BILATERALLY, RESP., EVEN, AND UNLABORED. +BS HEARD IN ALL 4 QUADRANTS. THE PT IS OBESE. +PP BILATERALLY, THE PT HAS SWOLLEN FEET AND ANKLES. DENIES ANXIETY AND DEPRESSION. REMAINS ON 12 MINUTE CHECKS FOR HIS SAFETY.
--- NOTE | 2019-06-27 04:33 | NUR ---
THE PT APPEARS TO BE RESTING QUIETLY IN BED. RESP., EVEN, AND UNLABORED. REMAINS ON 12 MINUTE CHECK FOR HIS SAFETY.
--- NOTE | 2019-06-27 05:39 | NUR ---
the pt slept 8.0 hours last night.
--- NOTE | 2019-06-27 11:07 | NUR ---
Nutrition: Pt seen for early LOS on [facility] unit. Met with pt in day area. He is a vegan (pescetarian technically). Admit for dementia, behavioral disturbance, psychosis. Eating exceptional. Great appetite, with 98% meal average per the last 18 recorded meals (06/20-06/26). Last documented BM 06/22. He is on scheduled docusate sodium BID since 06/19; has also prn Miralax. Pt reports no po intake concerns. Has a few kitchen complaints (i.e. "wants more greens," "broccoli is undercooked), but otherwise no additional needs. Called to add salad to lunch. Made sure pt eating enough protein from other sources. For protein he eats fish, beans, nuts/nut butter. Typically drinks almond milk; RD informed him of low protein < 1 g/svg, suggest soy. Low nutrition risk given high PO.
[2019-06-27 12:07] VITALS: BP 108/60
--- NOTE | 2019-06-27 14:47 | NUR ---
PATIENT HAS BEEN UP AND OUT ON THE UNIT, AMBULATE WITH ASSIST OF ROLLER WALKER, GAIT IS SLIGHTLY UNSTEADY. PATIENT IS EATING MEALS AND DRINKING FLUID FAIRLY WELL. PATIENT TOOL ALL MORNING MEDICATION WHOLE WITHOUT DIFFICULTY. PATIENT IS ALERT, AND ORIENTED X 2-3, ABLE TO VOICE NEED, HAS PERIODS OF FORGETFULNESS AND CONFUSION. PATIENT DENIES SUICIDAL AND HOMOCIDAL IDEATION. HE DENIES DEPRESSION AND ANXIETY. NO AGGRESSION OR AGITAION NOTED AT THIS TIME. PATIENT IS PARTICIPATING IN GROUP THERAPY, NO SIGN OF ACUTE DISTRESS NOTED, WILL MONITOR FOR SAFETY.
--- NOTE | 2019-06-27 16:32 | NUR ---
SW sent a referral to [facility], and [facility]. HUNG will follow-up with referral on Sunday, June 30, 2019.
[2019-06-27 21:26] VITALS: BP 138/70
[2019-06-28 07:00] VITALS: BP 116/52
[2019-06-28 09:37] VITALS: BP 116/52
[2019-06-28 21:19] VITALS: BP 133/81
[2019-06-29 00:40] VITALS: BP 133/81
--- NOTE | 2019-06-29 06:11 | NUR ---
PATIENT QUIET TONIGHT. SAT UP IN DINING ROOM TO HAVE HS SNACK OF PUDDING AND WENT BACK TO BED. HELPED PATIENT TO BATHROOM AND BACK A COUPLE OF TIMES DURING NIGHT. BLE EDEMA CHRONIC AT 2+. YELLOW NON SLIP SOCKS ON AND WALKER TO TRANSFER. NO C/O PAIN. SLEPT WELL THRU NIGHT.
[2019-06-29 09:35] VITALS: BP 139/81
--- NOTE | 2019-06-29 10:19 | NUR ---
ASSUMED PATIENT CARE AT 0700. PATIENT UP IN D.R. FOR BREAKFAST. COMPLIANT WITH A.M. MEDICATIONS, WHOLE WITH WATER. FLAT AFFECT, CALM MOOD, NO BEHAVIORS. CONTINUE TO MONITOR.
[2019-06-29 17:23] VITALS: BP 139/81
[2019-06-29 21:32] VITALS: BP 123/67
[2019-06-30 00:52] VITALS: BP 123/67
[2019-06-30 02:17] VITALS: BP 123/67
--- NOTE | 2019-06-30 06:16 | NUR ---
PATIENT AWOKE AT 0530 AND CAME TO NURSE'S STATION BECAUSE HE WANTED TO USE THE KITCHEN TO MAKE BRAN MUFFINS. WHEN TOLD THAT THIS WAS NOT POSSIBLE HE BECAME AGITATED. REDIRECTED HIM BY ASKING HIM IF HE WOULD LIKE TO SHAVE SINCE A RAZOR WAS FINALLY FOUND AFTER HE WENT TO BED LAST NIGHT AND HE HAD ASKED TO SHAVE. HE WAS HAPPY WITH THIS AND NURSE ANNABEL SAT WITH PATIENT TO WATCH AND ASSIST NEEDED HE WAS SHAVING. PATIENT STATES HE WILL TALK WITH DOCTOR TODAY ABOUT GETTING PERMISSION TO BAKE BRAN MUFFINS IN THE KITCHEN HERE AT THE HOSPITAL. PATIENT SLEPT 5.2 HOURS TONITE.
[2019-06-30 08:49] VITALS: BP 114/68
--- NOTE | 2019-06-30 17:50 | NUR ---
ASSUMED PATIENT CARE AT 0700. PATIENT HAS BEEN COOPERATIVE, CALM AND QUIET TO DATE THIS SHIFT. HAD NO VISITORS THIS SHIFT. CONTINUE TO MONITOR.
[2019-06-30 17:55] VITALS: BP 114/68
[2019-06-30 20:09] VITALS: BP 123/65
[2019-06-30 20:10] VITALS: BP 123/65
--- NOTE | 2019-07-01 00:07 | NUR ---
NURSES NOTE - ALEXANDER IS ALERT AND ORIENTED X1-2. UPON ASSESSMENT AND INTERACTIONS WITH OTHER PEERS HE IS IRRITABLE AND DEMANDING. HE APPROACHED THE NURSES STATION ASKING FOR DISCHARGE PAPERS, NEEDING TO CALL DR. SHELLEY BECAUSE 'HE SAID I COULD' ASKING TO SEE THE NURSES LITTLE BLACK BOOK. HE RUMENATED ON THESE THREE TOPICS SEVERAL TIMES. HE THEN HAD A SNACK AND WENT TO HIS ROOM. HE REFUSED HS MEDS STATING 'IM NOT TAKING ANY MEDICINE TONIGHT.' HE CONTINUED TO BE IRRITABLE. HE DENIED MEDICAL CONCERNS WITH NO S/S OF DISTRESS. NURSING WILL MAINTAIN ALL PRECAUTIONS TO ENSURE SAFETY AT ALL TIMES.
[2019-07-01 08:15] VITALS: BP 117/62
--- NOTE | 2019-07-01 11:33 | NUR ---
0715: Report rec from [facility] shift, care assumed. [id number]: Ambulatory with walker in room, halls and to DR, gait steady. Feeds self with set up assistance, appetite good,takes meds whole w/o difficulty. Mood is isolated, minimal interaction with staff and/or other pts. Oriented to name only, pleasantly confused, easily directed. Observed sleeping for most of 0900 therapy group, awakens readily to verbal stimuli, forgetful to recent events, unable to recall recents events, year or place.
[2019-07-01 19:53] VITALS: BP 125/71
--- NOTE | 2019-07-01 22:29 | NUR ---
PPD TEST ADMINISTERED IN L FA. BLEB MADE WITH NO LEAKAGE AND INTACT.
--- NOTE | 2019-07-02 02:59 | NUR ---
NURSES NOTE - ALEXANDER IS ALERT AND ORIENTED X1-2, HE APPEARS WITH A FLAT BLUNTED AFFECT IN THE DAY ROOM WHEN THIS NURSE ASSESSED PATIENT. HE IS FIXATED ON THE TV AND IS DIFFICULT TO ASSESS DUE TO THIS. HE APPEARS UNKEMPT AT TIMES. DISCHARGE PLANS ARE IN PLACE FOR SUNDAY, DR. SHELLEY REQUESTED THAT THIS RN ADMINISTER PPD TEST FOR PATIENTS RETURN, TEST ADMINISTERED IN PATIENT LFA. HE DENIED SI HI AND DEPRESSION ET HALLUCINATIONS. HE DID NOT REPORT ANY MEDICAL CONCERNS OR ANY S/S OF DISTRESS NURSING WILL MAINTAIN ALL PRECAUTIONS TO ENSURE SAFETY AT ALL TIMES.
--- NOTE | 2019-07-02 05:30 | NUR ---
PT SLEPT 4.6 HOURS
[2019-07-02 09:19] VITALS: BP 105/67
--- NOTE | 2019-07-02 12:07 | NUR ---
Date of Admission: 06/19/19 Date of Activity Therapy Assessment: 06/22/19 Activity Goal: Increase reality orientation and socialization Initial Goal: 1 Group activity/day Weekly progress towards goal: On track Group participation level: Minimal Behaviors observed: Patient has not consistently attended one group per day. During encouragement to attend, patient is often in his room either in the bathroom or lying in his bed. When in attendance, participation is minimal as patient often falls asleep and is difficult to wake. Patient does exhibit lack of orientation but no other behaviors are noted. Plan: No change towards goal
--- NOTE | 2019-07-02 12:11 | NUR ---
0700: Report rec from noc shift, care assumed. [id number]: Ambulatory with walker to DR, gait steady, mood quiet, sucludes self from others, feeds self, appetite fair, takes meds whole w/o difficulty, refused 0900 therapy group, resting supine in bed with eyes closed. 1210: Pt refusing to come to DR for noon meal, encouraged pt to come to DR to enhance discharge on Sunday. 1215: Pt ambulatory with walker to DR, feeds self w/o difficulty.
--- NOTE | 2019-07-02 16:01 | NUR ---
SW spoke with pt concerning d/c on Sunday, July 04, 2019 to [facility]. Pt stated that he would like his family to come in visit beforehand. SW mention that she reach put to pt Carol Ann concerning come to visit. SW will follow-up with pt.
[2019-07-02 21:05] VITALS: BP 119/65
--- NOTE | 2019-07-02 23:26 | NUR ---
assumed care of the pt at 1930. alert et oriented x 3. makes needs known. heart rate regular. lungs clear bilaterally, resp., even, and unlabored. +bs heard in all 4 quadrants. +Pp bilaterally. started on 12 minute checks for his safety.
[2019-07-03 08:32] VITALS: BP 130/74
--- NOTE | 2019-07-03 17:00 | NUR ---
Sw called and confimred newton pt would be discharging tomorrow to [facility]. Savi asked for the TB record to be read. This will be faxed to the [facility] before D/C . support dba has been set for 10am
--- NOTE | 2019-07-03 18:43 | NUR ---
PATIENT IS UP AND OUT ON THE UNIT, AMBULATES WITH ASSIST OF ROLLER WALKER. PATIENT IS QUIET, STAYS TO SELF, MINIMAL PARTICIPATION IN GROUP THERAPY. PATIENT DENIES SUICIDAL AND HOMOCIDAL IDEATION. PATIENT TOOK ALL MEDICATION WHOLE WITHOUT DIFFICULTY. HE IS EATING MEALS, AND DRINKING FLUID WELL. NO AGITATION OR AGGRESSIVE BEHAVIOR NOTED, WILL MONITOR FOR SAFETY.
[2019-07-03 21:44] VITALS: BP 125/66
--- NOTE | 2019-07-04 00:51 | NUR ---
Care assumed of patient at 1915: Patient sitting in day room. Calm, cooperative. Isolative at times. Patient quiet. Responds with simple direct responses to questions. Patient denies SI/HI/AH/VH. No s/s of delusional or paranoia behavior. Took medication whole without difficulty. Ate 100% HS snack. Patient has 3+ pitting edema to bilateral lower extremities. Patient encouraged to elevate bilateral lower extremities on a chair when sitting in day room. Patient denies pain or discomfort. Patient had some difficulty falling asleep this shift and retired to bed later than usual. Patient resting quietly at this time.
[2019-07-04 09:10] VITALS: BP 110/60
[2019-07-04] MEDS ORDERED: FLOMAX0.4 MG PO (09:42)
[2019-07-04] MEDS ORDERED: TOPROL XL25 MG PO (09:43)
[2019-07-04] MEDS ORDERED: DEPAKOTE ER250 MG PO (09:43)
[2019-07-04] MEDS ORDERED: AVODART0.5 MG PO (09:44)
[2019-07-04] MEDS ORDERED: PEPCID20 MG PO (09:44)
[2019-07-04 10:05] VITALS: BP 110/60
--- NOTE | 2019-07-04 12:14 | NUR ---
TB TEST NEGATIVE UPON ASSESSMENT.
--- NOTE | 2019-07-04 12:22 | NUR ---
ASSUMED CARE OF PT AT APPROX 0700. PT IS ALERT AND ORIENTED X4. DENIES PAIN AND SOA. EVEN NONLABORED BREATHING. ASSESSEMENT CHARTED. PT DEMONSTRATES APPROPRIATE BEHAVIOR. COOPERATIVE AND COMPLIANT. DC THIS AM.
--- NOTE | 2019-07-06 12:34 | D ---
[facility] [place] [address] DISCHARGE SUMMARY Name: ALEXANDER LUCAS Room #: 528B-B DIS IN M.R.#: [id number] Admission: 06/19/19 Attend Phys: Manuel Arnett DO Discharge: 07/04/19 Date of : 34 Report #: [id number] THIS REPORT FOR: //name// CC: Manuel Arnett [facility] DATE OF SERVICE: 07/04/2019 INPATIENT PSYCHIATRIC DISCHARGE SUMMARY ATTENDING PHYSICIAN: Manuel Arnett DO PRODUCTION EDITOR: Kvng Meadows MD DISCHARGE DIAGNOSES: Major neurocognitive disorder, likely due to Alzheimer's disease with behavioral disturbance, improved. MEDICAL COMORBIDITIES: Hypertension, on beta paulino; recurrent UTI, treated with Levaquin prior to admission, Rocephin and Keflex and culture grew mixed manish; chronic kidney disease, stable; BPH, on home medications; GI prophylaxis. DIET: The patient should be on probably an 1800-calorie diet due to his diabetic risk factors. The patient's placement will be at [facility] [place]. Medical and psychiatric care will be provided per that facility. There was an EKG done on this admission. QTc 427, QT 450, MA interval 62, rate 54. There is some left axis deviation. ACTIVITY LEVEL: Should be as tolerated, but would encourage ambulation. REASON FOR ADMISSION: The patient was readmitted I believe when I was on vacation. Dr. Lackey admitted him. The reason was he developed hallucinations and paranoia. He reported anxiety. He denied depression. Reality testing impaired. His was unable to care for him. HOSPITAL COURSE: The patient was admitted to Ger[facility] Psychiatry Unit. We had him on Haldol earlier in the admission. The patient developed possibly possibly excessive sedation from Haldol. That was discontinued and we went with a Depakote regimen for impulse control. Most of the rest of admission was spent working on placement. MEDICATIONS AT THE TIME OF DISCHARGE: Tamsulosin 0.4 mg p.o. daily, metoprolol succinate 12.5 mg p.o. daily, Depakote ER 750 mg p.o. at bedtime, famotidine [address] [address] DISCHARGE SUMMARY Name: ALEXANDER LUCAS Ondina Room #: 528B-B DIS IN M.R.#: [id number] Admission: 06/19/19 Attend Phys: Manuel Arnett DO Discharge: 07/04/19 Date of : 34 Report #: [id number] mg p.o. at bedtime, testosterone 0.5 mg p.o. daily for BPH as generic for Avodart, docusate 100 mg p.o. b.i.d. Haldol was stopped this admission. LABORATORY DATA: Notable lab work this admission: Hematology, H and H slightly low at 13.1 and 39.3. Chemistries, EGFR 57. Troponin was negative on June 18. Albumin 3. Urine had some positives and the culture grew mixed manish. Toxicology was negative. Depakote level was 29 on 07/03/2019. I do not believe I raised it since he was doing well, so that was on 500 mg dose. PHYSICAL EXAMINATION: VITAL SIGNS: On the day of discharge, pulse rate 46, which was on the low side, respirations 12, BP 110/60. MENTAL STATUS EXAMINATION: This is a well-developed, fairly nourished, obese, BMI of 36.6, male, appearing nearly stated age. Attention limited. Concentration limited. Speech is normal rate. Thought process linear and limited. Thought content focused on discharge. No psychomotor agitation. Some psychomotor retardation. Mood and affect congruent, but constricted. Denied SI or HI. Denied hopelessness and helplessness. Denied homicidal intent or plan. Memory not formally tested and known to be impaired. Insight limited. Judgment limited. Fund of knowledge below average. Prognosis for this patient is guarded given his multiple comorbidities, persistence of dementia, now requiring memory care placement. <ELECTRONICALLY SIGNED> By: Manuel Arnett DO 07/06/19 1234 1225 [id number] Manuel Arnett DO /nt
== END 2019-07-04 10:25 | DRG 57 ==
LOC: ER 21:14 → EROBS 06-19 00:36 → SBH 06-19 00:36 → EROBS 06-19 00:36 → SBH 06-19 01:38
PROVIDERS: Emergency Medicine; Physician Assistant; ADMIT Psychiatry & Neurology Psychiatry
DX: G30.9 Alzheimer's disease, unspecified (principal); F02.81 Dementia in other diseases classified elsewhere, unspecified severity, with behavioral disturbance; N39.0 Urinary tract infection, site not specified; F29 Unspecified psychosis not due to a substance or known physiological condition; I10 Essential (primary) hypertension; N40.0 Benign prostatic hyperplasia without lower urinary tract symptoms; N18.3 Chronic kidney disease, stage 3 (moderate); F32.9 Major depressive disorder, single episode, unspecified; F22 Delusional disorders; Z98.52 Vasectomy status; Z79.899 Other long term (current) drug therapy
CPT/HCPCS: 10880